=== PATIENT | male | born 1950 | race Caucasian/White ===

== ENCOUNTER 2019-12-26 14:08 | IRF | payer MEDICARE, SELFPAY ==
[2019-12-26 14:10] VITALS: BP 143/77; PULSE 76; RESP 20; TEMP 36.2; O2SAT 99; BMI 27.6
--- NOTE | 2019-12-26 15:25 | PC.NURSE ---
This patient, Murali Fajardo, was admitted to [facility] Room 223-01. Patient/family oriented to hospital policies and general routines including ID bracelet, bed and alarms, visiting hours, pain management, procedures, bathroom and other care routines, personal items, smoking policy, room service/diet, and visiting hours. Information on how to activate the Rapid Response Team has been discussed. Patient/Family are encouraged to report perceived risks to care and to ask questions if they do not understand what they are told or what they should do.
[2019-12-26 17:17] VITALS: BMI 27.9
[2019-12-26 17:40] VITALS: PULSE 76
[2019-12-26] MEDS: carvediloL 12.5 MG TABLET PO (17:40)
[2019-12-26 17:46] LABS: Glucose Point of Care 129 (65-105)
[2019-12-26 20:20] VITALS: BP 127/64; PULSE 66; RESP 16; TEMP 36.7; O2SAT 94
[2019-12-26] MEDS: ATORVASTATIN 40 MG TABLET PO (20:29)
[2019-12-26] MEDS: HEPARIN SODIUM 5,000 UNITS/ML VIAL 5000 UNITS SUB-Q (21:11)
[2019-12-26 21:23] LABS: Glucose Point of Care 99 (65-105)
[2019-12-27 05:23] LABS: Basophils Absolute Auto 0.1 K/mm3 (0.0-0.1); Basophils Percent Auto 0.6 % (0.2-1.2); Eosinophils Absolute Auto 0.1 K/mm3 (0-0.3); Eosinophils Percent Auto 1.1 % (0-4.4); Hematocrit 43.4 % (42.0-52.0); Immature Granulocyte Absolute 0.03 K/mm3 (0.00-0.031); Immature Granulocyte Percent A 0.3 % (0-0.5); Lymphocytes Absolute Auto 3.89 K/mm3 (0.9-3.2); Mean Corpuscular HGB Conc 34.6 g/dl (32-36); Mean Corpuscular Hemoglobin 30.9 pg (26-34); Mean Corpuscular Volume 89.3 fl (80-100); Mean Platelet Volume 9.7 fl (7.4-10.4); Monocytes Absolute Auto 0.8 K/mm3 (0.1-0.6); Monocytes Percent Auto 8.6 % (2.6-8.5); Neutrophils Absolute Auto 4.4 K/mm3 (1.3-6.7); Neutrophils Percent Auto 47.4 % (45.5-73.1); Platelet Count Result 336 k/mm3 (150-375); Red Blood Count 4.86 M/mm3 (4.6-6.20); Red Cell Distribution Width 12.9 % (11.5-14.5); White Blood Count 9.3 K/mm3 (4.5-10.0)
[2019-12-27 05:46] LABS: Hemoglobin A1C 5.5 % (<5.7)
[2019-12-27 05:47] LABS: Anion Gap 9 mmol/L (8-16); Blood Urea Nitrogen 42 mg/dL (9-20); Calcium 9.4 mg/dL (8.4-10.2); Carbon Dioxide 26 mmol/L (22-30); Chloride 108 mmol/L (98-107); Cholesterol 111 mg/dL (0-200); Estimated CRCL calculation 48 ml/min; Estimated Glomerular Filt Rate 50; Glucose 100 mg/dL (75-110); HDL Direct 28 mg/dL; Potassium 3.7 mmol/L (3.4-5.0); Sodium 143 mmol/L (137-145); Triglycerides 117 mg/dL (<150)
[2019-12-27 05:58] LABS: LDL Cholesterol Direct 57 mg/dL
[2019-12-27 06:00] VITALS: BP 122/57; PULSE 63; RESP 20; TEMP 36.8; O2SAT 96
[2019-12-27] MEDS: HEPARIN SODIUM 5,000 UNITS/ML VIAL 5000 UNITS SUB-Q ×3 (06:05→22:04)
[2019-12-27 06:12] LABS: Glucose Point of Care 96 (65-105)
[2019-12-27] MEDS: amLODIPine BESYLATE 5 MG TABLET 10 MG PO (08:48)
[2019-12-27] MEDS: ASPIRIN 81 MG CHEWABLE TABLET PO (08:48)
[2019-12-27 08:49] VITALS: PULSE 63
[2019-12-27] MEDS: CLOPIDOGREL BISULFATE 75 MG TABLET PO (08:49)
[2019-12-27] MEDS: carvediloL 12.5 MG TABLET PO ×2 (08:49→17:35)
[2019-12-27] MEDS: lisinopriL 20 MG TABLET 40 MG PO (08:49)
[2019-12-27] MEDS: NICOTINE (*PBKC) 14 MG PATCH 1 PATCH TRANSDERM (08:49)
[2019-12-27] MEDS: SENNOSIDES 8.6 MG TABLET PO ×2 (08:49→17:35)
[2019-12-27 12:08] LABS: Glucose Point of Care 108 (65-105)
--- NOTE | 2019-12-27 12:59 | WPDREHABHP ---
H&P: HPI History of Present Illness Date/Time: 12/27/19 12:59 Chief complaint: CVA Narrative: Murali Fajardo is a 69 year old maleHISTORY OF PRESENT ILLNESS: The patient's primary rehab impairment category is Stroke The etiologic diagnosis is right basal ganglia stroke I saw this patient [id number] on Abel 30 p.m. on 2119 The patient is a 69 years old right-handed male with no significant past medical history presented to [facility] on December 21, 2019 after waking up with left-sided facial droop, dysarthria, and left arm weakness. Initial NIH SS was 3 upon [facility] NIH SS was 5. TPA was not administered as patient was a wake-up stroke. Mechanical thrombectomy was not warranted with NIHSS of 5. CT of the head showed no acute intracranial hemorrhage, midline shift, or significant mass effect. MRI of the brain showed a small focus of restricted diffusion in the right periventricular white matter coronal radiata, extending along the dorsal aspect of the right basal ganglia, compatible with acute infarction there was no evidence of hemorrhagic transformation. MRA was negative for large vessel occlusion. Echo was negative for shunt. neurology was consulted and the patient was started on aspirin atorvastatin Plavix and blood pressure medications. Physical examination continues to reveal decreased gross motor control, impaired balance, dysarthria, and decreased safety awareness, and bilateral lower extremity weakness. The patient passed his swallowing study and is on a regular consistency diet with thin liquids. The patient will need monitoring and management of blood pressure at the patient was not on any medication prior to this admission. He is currently on Norvasc, lisinopril, and Coreg. The patient dischargeed to the rehab on subcutaneous heparin for DVT prophylaxis until consistently ambulating 150ft with therapy COVID: patient has not traveled outside the [place] or had contact with someone who is ill that has traveled outside the [place] in the past 21 days. The patient has not traveled to an area of the [place] that is experiencing known transmission of the Coronavirus and has not had close personal contact with anyone that has. The patient does not have a fever. The patient is not experiencing lower respiratory illness symptoms. Therapy was initiated at the acute care facility and the patient transferred to us from [facility] on December 26, 2019 FALLS OR SURGERIES: The patient has had no major surgeries in the 100 days prior to admission. They had no falls in the past year. They had no falls with injury in the past year. PAST MEDICAL HISTORY: no significant medical history PAST SURGICAL HISTORY: no significant surgical history SOCIAL HISTORY: the patient is a current everyday smoker, no alcohol or drug abuse. He lives with his in a 1 level home with 5 steps to enter. There is a stair lift due to a medical condition his suffered a couple of years ago. The patient was completely independent prior with no assistive device. He is a retired construction carpenter and just prior to this stroke had recent sided their home. He is very motivated to return to his prior level of independent functioning. His is the available to assist him following rehabilitation if necessary FAMILY HISTORY: father with stroke x2 PRIOR LEVEL OF FUNCTION: Eating was [INDEPENDENT] Oral Care was [INDEPENDENT] Toileting Hygiene was [INDEPENDENT] Shower/Bathing was [INDEPENDENT] Upper Body Dressing was [INDEPENDENT] Lower Body Dressing was [INDEPENDENT] Donning/[place] Footwear was [INDEPENDENT] Rolling Left and Right was [INDEPENDENT] Sit to Lying was [INDEPENDENT] Lying to Sitting was [INDEPENDENT] Sit to Stand was [INDEPENDENT] Bed to Chair Transfers was [INDEPENDENT] Toilet Transfers was [INDEPENDENT] Walking was [INDEPENDENT] [>500 feet] with [NO DEVICE] Wheelchair Mobility
[2019-12-27 14:00] VITALS: BP 122/64; PULSE 73; RESP 20; TEMP 36.4; O2SAT 97
[2019-12-27 17:35] VITALS: PULSE 73
[2019-12-27 17:35] LABS: Glucose Point of Care 99 (65-105)
[2019-12-27 20:24] VITALS: BP 125/61; PULSE 72; RESP 18; TEMP 35.9; O2SAT 94
[2019-12-27] MEDS: ATORVASTATIN 40 MG TABLET PO (22:02)
[2019-12-27 22:26] LABS: Glucose Point of Care 87 (65-105)
[2019-12-28] VITALS (7 sets, daily range): BP systolic 128–141; BP diastolic 60–66; PULSE 63–78; RESP 19–20; TEMP 36.2–36.6; O2SAT 95–99
[2019-12-28] MEDS: HEPARIN SODIUM 5,000 UNITS/ML VIAL 5000 UNITS SUB-Q ×3 (06:03→20:56)
[2019-12-28 06:46] LABS: Glucose Point of Care 95 (65-105)
[2019-12-28] MEDS: CLOPIDOGREL BISULFATE 75 MG TABLET PO (09:06)
[2019-12-28] MEDS: ASPIRIN 81 MG CHEWABLE TABLET PO (09:06)
[2019-12-28] MEDS: SENNOSIDES 8.6 MG TABLET PO ×2 (09:06→16:56)
[2019-12-28] MEDS: amLODIPine BESYLATE 5 MG TABLET 10 MG PO (09:06)
[2019-12-28] MEDS: carvediloL 12.5 MG TABLET PO ×2 (09:06→16:57)
[2019-12-28] MEDS: lisinopriL 20 MG TABLET 40 MG PO (09:06)
[2019-12-28] MEDS: NICOTINE (*PBKC) 14 MG PATCH 1 PATCH TRANSDERM (09:06)
[2019-12-28] MEDS: ATORVASTATIN 40 MG TABLET PO (20:55)
[2019-12-29] MEDS: HEPARIN SODIUM 5,000 UNITS/ML VIAL 5000 UNITS SUB-Q ×3 (05:10→20:32)
[2019-12-29 06:00] VITALS: BP 127/67; PULSE 68; RESP 19; TEMP 36.4; O2SAT 97
[2019-12-29 08:23] VITALS: PULSE 68
[2019-12-29] MEDS: lisinopriL 20 MG TABLET 40 MG PO (08:23)
[2019-12-29] MEDS: amLODIPine BESYLATE 5 MG TABLET 10 MG PO (08:23)
[2019-12-29] MEDS: CLOPIDOGREL BISULFATE 75 MG TABLET PO (08:23)
[2019-12-29] MEDS: NICOTINE (*PBKC) 14 MG PATCH 1 PATCH TRANSDERM (08:23)
[2019-12-29] MEDS: ASPIRIN 81 MG CHEWABLE TABLET PO (08:23)
[2019-12-29] MEDS: carvediloL 12.5 MG TABLET PO ×2 (08:23→17:04)
[2019-12-29] MEDS: SENNOSIDES 8.6 MG TABLET PO ×2 (08:23→17:04)
--- NOTE | 2019-12-29 08:45 | RPD ---
INDIVIDUALIZED PLAN OF CARE FOR Murali Fajardo Brief Synthesis of Pre-Admission Screen, Post-Admission Evaluation and Therapy Evaluations: The patient presents to rehab with a right basal ganglia stroke. Comorbidities include uncontrolled hypertension, hyperlipidemia, impaired balance, bilateral lower extremity weakness, dysarthria, left-sided weakness, left-sided facial droop, and tobacco use. The complexity of the patient's medical management, nursing, and therapy needs require an inpatient rehab hospital stay with a physician-led interdisciplinary team approach. The patient?s needs will be best met in an intensive program vs. at a lower level of care. The patient requires physician services for neurology services, medical oversight, and coordination of care. The patient needs physician monitoring and treatment of new uncontrolled hypertension, monitoring for adverse reactions to new medications, monitoring of infection, and pain control. The patient requires nursing services for frequent neuro checks, anticoagulation therapy, medication management and education, pressure relief and skin care management, monitoring of labs, and fall/safety precautions. Deficits include:ADLs, Balance, Endurance, Family Training/Education, Mobility, ROM, Safety, Speech, Strength, Transfers Pigs Feet Cleaner/Case Management for: Discharge Planning and Patient/Family Counseling Physical Therapy: 5 days per week for 75 minutes. Treatments may include: Therapeutic Exercise, Gait Training, Neuromuscular Re-education, Transfer Training, Community Reintegration, Bed Mobility, Patient/Family Education, Wheelchair Mobility Group Therapy/Concurrent Therapy Rationales: -Improve attention span during functional activities in a distracted environment. -Enhance problem solving and/or adequate judgment skills during functional activities in a distracted environment. -Promote increased safety awareness in a distracted environment to reduce fall risk with functional tasks, transfers, and ambulation to allow a more safe, self-sufficient return to the home environment. -Improve dynamic balance skills to promote safety and independence with functional activities in a distracted environment for maximum gain. Occupational Therapy: 5 days per week for 75 minutes. Treatments may include: Therapeutic Exercise, Therapeutic Activity, Cognitive Training, Self-Care Transfer Training, Community Reintegration, Home Management, Patient/Family Education, Wheelchair Mobility Training, Energy Conservation Training Group Therapy/Concurrent Therapy Rationales: -Allow therapist to observe and teach generalization and carry-over of skills learned in individual therapy. -Enhance problem solving and sequencing skills during therapeutic activities in a distracted environment. -Promote increased safety awareness in a realistic setting to reduce fall risk with functional tasks due to visual and verbal distractions. -Increase functional level with ADLs, ADL transfers and use of adaptive equipment through therapeutic activities with others while promoting safety to allow a more safe, self-sufficient return home. Speech Therapy: 5 days per week for 30 minutes. Treatments may include: Dysphasia Therapy, Speech/Language/Communication Therapy, Cognitive Training, Patient/Family Education Group Therapy/Concurrent Therapy - Rationale: -Allow therapist to observe and teach generalization and carry-over of skills learned in individual therapy. -Improve comprehension skills with complex or abstract ideas through discussion in a realistic setting. -Enhance problem solving skills with complex issues during activities in a distracted environment. -Promote increased memory skills and concentration in a distracted environment for a safe transition home. -Improve attention and focus with language/communication skills in a realistic and supportive therapeutic setting. -Allow for practice of expression of basic needs and ideas through functional
--- NOTE | 2019-12-29 10:10 | WPDNEURORHBP ---
Subjective Date/time seen: 12/29/19 10:10 69 years old has been admitted to the rehab floor with the diagnosis of right basal gangliar is stroke without evidence of any significant past histor his CBC revealed WBC of 9.3 hemoglobin 15.0 with platelet count 336 BUN 42 with GFR of 50 Review of Systems Review of Systems: All systems reviewed & are unremarkable except as noted in HPI and below Functional Status Ambulation Ability Ability to Ambulate 10 Feet: Moderate Assistance X 1 Ability to Ambulate 50 Feet With 2 Turns: Moderate Assistance X 1 Ambulation Assistive Devices: Walker, Wheeled Transfers Ability Ability to Transfer In/Out of Chair: Minimum Assistance X 1 Exam Narrative: Exam Narrative: examination revealed him to be awake alert cooperative in no obvious acute distress ear nose throat examination normal heart regular with no murmur lungs clear without rhonchi abdomen is soft nontender normal bowel sounds neurological examination unchanged Objective Data Vital Signs Vital Signs: Vital Signs - 24 hr 12/28/19 10:31 12/28/19 14:00 12/28/19 16:57 Temperature 36.3 C L Pulse Rate 73 64 66 Respiratory Rate 20 Blood Pressure 138/66 141/66 H Pulse Oximetry 98 97 12/28/19 20:00 12/28/19 22:00 12/29/19 06:00 Temperature 36.6 C 36.4 C L Pulse Rate 78 78 68 Respiratory Rate 19 19 19 Blood Pressure 129/60 127/67 Pulse Oximetry 95 95 97 12/29/19 08:23 Temperature Pulse Rate 68 Respiratory Rate Blood Pressure Pulse Oximetry Intake/Output Intake/Output: Intake & Output 12/26/19 12/27/19 12/28/19 12/29/19 23:59 23:59 23:59 23:59 Intake Total 240 720 720 360 Balance 240 720 720 360 Meds/Results Medications: Active Medications Generic Name Dose Route Start Last Admin Trade Name Freq PRN Reason Stop Dose Admin Amlodipine Besylate 10 mg 12/27/19 09:00 12/29/19 08:23 Amlodipine Besylate 5 Mg Tablet PO 10 mg DAILY MARBELLA Administration Aspirin 81 mg 12/27/19 09:00 12/29/19 08:23 Aspirin 81 Mg Chewable Tablet PO 81 mg DAILY MARBELLA Administration Atorvastatin Calcium 40 mg 12/26/19 21:00 12/28/19 20:55 Atorvastatin 40 Mg Tablet PO 40 mg HS MARBELLA Administration Carvedilol 12.5 mg 12/26/19 17:00 12/29/19 08:23 Carvedilol 12.5 Mg Tablet PO 12.5 mg BID MARBELLA Administration Clopidogrel Bisulfate 75 mg 12/27/19 09:00 12/29/19 08:23 Clopidogrel Bisulfate 75 Mg Tablet PO 75 mg DAILY MARBELLA Administration Heparin Sodium (Porcine) 5,000 units 12/26/19 22:00 12/29/19 05:10 Heparin Sodium 5,000 Units/Ml Vial SUB-Q 5,000 units Q8HR MARBELLA Administration Lisinopril 40 mg 12/27/19 09:00 12/29/19 08:23 Lisinopril 20 Mg Tablet PO 40 mg DAILY MARBELLA Administration Nicotine 1 patch 12/26/19 15:30 12/29/19 08:23 Nicotine (*Pbkc) 14 Mg Patch TRANSDERM 1 patch DAILY MARBELLA Administration Polyethylene Glycol 17 gm 12/26/19 15:21 Polyethylene Glycol 3350 17 Gm Powd.Pack PO DAILY PRN Constipation Senna 8.6 mg 12/26/19 17:00 12/29/19 08:23 Sennosides 8.6 Mg Tablet PO 8.6 mg BID MARBELLA Administration Simethicone 80 mg 12/26/19 15:21 Simethicone 80 Mg Tab.Chew PO HS PRN Heartburn Progress Note: A&P Assessment and Plan (1) Stroke: Code(s): I63.9 - Cerebral infarction, unspecified Status: Acute Additional Plan continue the treatment as such repeat the lab earlier and decide accordingly
[2019-12-29 12:25] LABS: Anion Gap 8 mmol/L (8-16); Blood Urea Nitrogen 34 mg/dL (9-20); Calcium 9.3 mg/dL (8.4-10.2); Carbon Dioxide 27 mmol/L (22-30); Chloride 108 mmol/L (98-107); Estimated CRCL calculation 60 ml/min; Estimated Glomerular Filt Rate > 60; Glucose 110 mg/dL (75-110); Potassium 4.4 mmol/L (3.4-5.0); Sodium 143 mmol/L (137-145)
[2019-12-29 13:01] VITALS: BMI 27.9
[2019-12-29 14:00] VITALS: BP 134/60; PULSE 77; RESP 20; TEMP 36.6; O2SAT 96
--- NOTE | 2019-12-29 15:00 | PCPTNOTE ---
Murali Fajardo was evaluated for a tom cane on 12/29/2019 by this physical therapist. The tom cane will resolve patient's mobility limitations and will be used for ADL's within the home. The patient can safely use the tom cane. ?The tom cane will resolve the patient?s mobility deficits, including impaired balance and coordination, decreased endurance, and LE strength deficits.
[2019-12-29 17:04] VITALS: PULSE 77
[2019-12-29] MEDS: ATORVASTATIN 40 MG TABLET PO (20:32)
[2019-12-29 20:40] VITALS: BP 147/62; PULSE 73; RESP 14; TEMP 36.5; O2SAT 99
[2019-12-30] MEDS: HEPARIN SODIUM 5,000 UNITS/ML VIAL 5000 UNITS SUB-Q ×3 (05:50→21:55)
[2019-12-30 05:51] VITALS: BP 154/64; PULSE 65; RESP 14; TEMP 36.2; O2SAT 98
[2019-12-30] MEDS: NICOTINE (*PBKC) 14 MG PATCH 1 PATCH TRANSDERM (10:32)
[2019-12-30 10:33] VITALS: PULSE 65
[2019-12-30] MEDS: carvediloL 12.5 MG TABLET PO ×2 (10:33→16:59)
[2019-12-30] MEDS: lisinopriL 20 MG TABLET 40 MG PO (10:33)
[2019-12-30] MEDS: ASPIRIN 81 MG CHEWABLE TABLET PO (10:33)
[2019-12-30] MEDS: SENNOSIDES 8.6 MG TABLET PO ×2 (10:33→16:59)
[2019-12-30] MEDS: amLODIPine BESYLATE 5 MG TABLET 10 MG PO (10:33)
[2019-12-30] MEDS: CLOPIDOGREL BISULFATE 75 MG TABLET PO (10:34)
--- NOTE | 2019-12-30 11:16 | WPDNEURORHBP ---
Subjective Date/time seen: 12/30/19 11:16 69 years old has been admitted to the rehab floor of the [facility] with a right basal ganglia stroke with no evidence of an active comorbid conditions on today's visit he has no specific complaints and doing fairly well Functional Status Ambulation Ability Ability to Ambulate 10 Feet: Contact Guard Ability to Ambulate 50 Feet With 2 Turns: Contact Guard Ability to Ambulate 150 Feet: Minimum Assistance X 1 Ambulation Assistive Devices: Cane, Thomas Transfers Ability Ability to Transfer In/Out of Chair: Minimum Assistance X 1 Exam Narrative: Exam Narrative: on examination he is awake alert cooperative speech nor dysphasic not dysarthric heart regular lungs clear abdomen soft neurological examination is unchanged and his vital signs remained stable Objective Data Vital Signs Vital Signs: Vital Signs - 24 hr 12/29/19 14:00 12/29/19 17:04 12/29/19 20:40 Temperature 36.6 C 36.5 C Pulse Rate 77 77 73 Respiratory Rate 20 14 Blood Pressure 134/60 147/62 H Pulse Oximetry 96 99 12/30/19 05:51 12/30/19 10:33 Temperature 36.2 C L Pulse Rate 65 65 Respiratory Rate 14 Blood Pressure 154/64 H Pulse Oximetry 98 Intake/Output Intake/Output: Intake & Output 12/27/19 12/28/19 12/29/19 12/30/19 23:59 23:59 23:59 23:59 Intake Total 286 129 2215 480 Balance 264 842 3551 480 Meds/Results Medications: Active Medications Generic Name Dose Route Start Last Admin Trade Name Freq PRN Reason Stop Dose Admin Amlodipine Besylate 10 mg 12/27/19 09:00 12/30/19 10:33 Amlodipine Besylate 5 Mg Tablet PO 10 mg DAILY MARBELLA Administration Aspirin 81 mg 12/27/19 09:00 12/30/19 10:33 Aspirin 81 Mg Chewable Tablet PO 81 mg DAILY MARBELLA Administration Atorvastatin Calcium 40 mg 12/26/19 21:00 12/29/19 20:32 Atorvastatin 40 Mg Tablet PO 40 mg HS MARBELLA Administration Carvedilol 12.5 mg 12/26/19 17:00 12/30/19 10:33 Carvedilol 12.5 Mg Tablet PO 12.5 mg BID MARBELLA Administration Clopidogrel Bisulfate 75 mg 12/27/19 09:00 12/30/19 10:34 Clopidogrel Bisulfate 75 Mg Tablet PO 75 mg DAILY MARBELLA Administration Heparin Sodium (Porcine) 5,000 units 12/26/19 22:00 12/30/19 05:50 Heparin Sodium 5,000 Units/Ml Vial SUB-Q 5,000 units Q8HR MARBELLA Administration Lisinopril 40 mg 12/27/19 09:00 12/30/19 10:33 Lisinopril 20 Mg Tablet PO 40 mg DAILY MARBELLA Administration Nicotine 1 patch 12/26/19 15:30 12/30/19 10:32 Nicotine (*Pbkc) 14 Mg Patch TRANSDERM 1 patch DAILY MARBELLA Administration Polyethylene Glycol 17 gm 12/26/19 15:21 Polyethylene Glycol 3350 17 Gm Powd.Pack PO DAILY PRN Constipation Senna 8.6 mg 12/26/19 17:00 12/30/19 10:33 Sennosides 8.6 Mg Tablet PO 8.6 mg BID MARBELLA Administration Simethicone 80 mg 12/26/19 15:21 Simethicone 80 Mg Tab.Chew PO HS PRN Heartburn Labs Labs: Laboratory Results - last 24 hr 12/29/19 12:06 Sodium 143 Potassium 4.4 Chloride 108 H Carbon Dioxide 27 Anion Gap 8 BUN 34 H Creatinine 1.10 Estim Creat Clear Calc 60 Estimated GFR > 60 Glucose 110 Calcium 9.3 Progress Note: A&P Assessment and Plan (1) Stroke: Code(s): I63.9 - Cerebral infarction, unspecified Status: Acute Additional Plan at present is stable continue the treatment as such
[2019-12-30 14:00] VITALS: BP 152/65; PULSE 70; RESP 16; TEMP 36.3; O2SAT 98
[2019-12-30 16:59] VITALS: PULSE 70
[2019-12-30] MEDS: ATORVASTATIN 40 MG TABLET PO (21:55)
[2019-12-30 21:58] VITALS: BP 133/55; PULSE 71; RESP 20; TEMP 36.8; O2SAT 98
[2019-12-31] MEDS: HEPARIN SODIUM 5,000 UNITS/ML VIAL 5000 UNITS SUB-Q ×3 (05:52→21:07)
[2019-12-31 06:00] VITALS: BP 127/67; PULSE 78; RESP 20; TEMP 36.6; O2SAT 97
[2019-12-31] MEDS: NICOTINE (*PBKC) 14 MG PATCH 1 PATCH TRANSDERM (08:26)
[2019-12-31] MEDS: lisinopriL 20 MG TABLET 40 MG PO (08:26)
[2019-12-31 08:27] VITALS: PULSE 76
[2019-12-31] MEDS: ASPIRIN 81 MG CHEWABLE TABLET PO (08:27)
[2019-12-31] MEDS: SENNOSIDES 8.6 MG TABLET PO ×2 (08:27→16:43)
[2019-12-31] MEDS: CLOPIDOGREL BISULFATE 75 MG TABLET PO (08:27)
[2019-12-31] MEDS: amLODIPine BESYLATE 5 MG TABLET 10 MG PO (08:27)
[2019-12-31] MEDS: carvediloL 12.5 MG TABLET PO ×2 (08:27→16:43)
--- NOTE | 2019-12-31 12:07 | WPDNEURORHBP ---
Subjective Date/time seen: 12/31/19 12:07 69 years old has been admitted to the rehab floor with the diagnosis of right basal ganglia stroke but no evidence of active comorbid conditions on today's visit he has no specific complaints his routine lab reveals the BUN of 34 Review of Systems Review of Systems: All systems reviewed & are unremarkable except as noted in HPI and below Functional Status Ambulation Ability Ability to Ambulate 10 Feet: Contact Guard Ability to Ambulate 50 Feet With 2 Turns: Contact Guard Ability to Ambulate 150 Feet: Contact Guard Ambulation Assistive Devices: Cane, Thomas Transfers Ability Ability to Transfer In/Out of Chair: Contact Guard Exam Narrative: Exam Narrative: on examination he is awake alert his speech normal with no dysphagia or dysarthria heart regular with no murmur lungs clear with no rhonchi or crepitations abdomen soft with no organomegaly normal bowel sounds and nontender neurological examination unchanged Objective Data Vital Signs Vital Signs: Vital Signs - 24 hr 12/30/19 14:00 12/30/19 16:59 12/30/19 21:58 Temperature 36.3 C L 36.8 C Pulse Rate 70 70 71 Respiratory Rate 16 20 Blood Pressure 152/65 H 133/55 L Pulse Oximetry 98 98 12/31/19 06:00 12/31/19 08:27 Temperature 36.6 C Pulse Rate 78 76 Respiratory Rate 20 Blood Pressure 127/67 Pulse Oximetry 97 Intake/Output Intake/Output: Intake & Output 12/28/19 12/29/19 12/30/19 12/31/19 23:59 23:59 23:59 23:59 Intake Total 720 1080 1200 360 Balance 720 1080 1200 360 Meds/Results Medications: Active Medications Generic Name Dose Route Start Last Admin Trade Name Freq PRN Reason Stop Dose Admin Amlodipine Besylate 10 mg 12/27/19 09:00 12/31/19 08:27 Amlodipine Besylate 5 Mg Tablet PO 10 mg DAILY MARBELLA Administration Aspirin 81 mg 12/27/19 09:00 12/31/19 08:27 Aspirin 81 Mg Chewable Tablet PO 81 mg DAILY MARBELLA Administration Atorvastatin Calcium 40 mg 12/26/19 21:00 12/30/19 21:55 Atorvastatin 40 Mg Tablet PO 40 mg HS MARBELLA Administration Carvedilol 12.5 mg 12/26/19 17:00 12/31/19 08:27 Carvedilol 12.5 Mg Tablet PO 12.5 mg BID MARBELLA Administration Clopidogrel Bisulfate 75 mg 12/27/19 09:00 12/31/19 08:27 Clopidogrel Bisulfate 75 Mg Tablet PO 75 mg DAILY MARBELLA Administration Heparin Sodium (Porcine) 5,000 units 12/26/19 22:00 12/31/19 05:52 Heparin Sodium 5,000 Units/Ml Vial SUB-Q 5,000 units Q8HR MARBELLA Administration Lisinopril 40 mg 12/27/19 09:00 12/31/19 08:26 Lisinopril 20 Mg Tablet PO 40 mg DAILY MARBELLA Administration Nicotine 1 patch 12/26/19 15:30 12/31/19 08:26 Nicotine (*Pbkc) 14 Mg Patch TRANSDERM 1 patch DAILY MARBELLA Administration Polyethylene Glycol 17 gm 12/26/19 15:21 Polyethylene Glycol 3350 17 Gm Powd.Pack PO DAILY PRN Constipation Senna 8.6 mg 12/26/19 17:00 12/31/19 08:27 Sennosides 8.6 Mg Tablet PO 8.6 mg BID MARBELLA Administration Simethicone 80 mg 12/26/19 15:21 Simethicone 80 Mg Tab.Chew PO HS PRN Heartburn Progress Note: A&P Assessment and Plan (1) Stroke: Code(s): I63.9 - Cerebral infarction, unspecified Status: Acute Additional Plan stable continue the treatment as such will repeat the BMP because the BUN 34 and might need more hydration
[2019-12-31 14:00] VITALS: BP 141/63; PULSE 81; RESP 20; TEMP 36.8; O2SAT 96
[2019-12-31 16:43] VITALS: PULSE 80
[2019-12-31] MEDS: ATORVASTATIN 40 MG TABLET PO (20:27)
[2019-12-31 22:00] VITALS: BP 150/65; PULSE 80; RESP 18; TEMP 36.3; O2SAT 98
[2020-01-01] MEDS: HEPARIN SODIUM 5,000 UNITS/ML VIAL 5000 UNITS SUB-Q ×3 (05:37→21:00)
[2020-01-01 06:00] VITALS: BP 148/69; PULSE 74; RESP 18; TEMP 36.6; O2SAT 96
[2020-01-01 08:28] VITALS: PULSE 74
[2020-01-01] MEDS: lisinopriL 20 MG TABLET 40 MG PO (08:28)
[2020-01-01] MEDS: amLODIPine BESYLATE 5 MG TABLET 10 MG PO (08:28)
[2020-01-01] MEDS: CLOPIDOGREL BISULFATE 75 MG TABLET PO (08:28)
[2020-01-01] MEDS: NICOTINE (*PBKC) 14 MG PATCH 1 PATCH TRANSDERM (08:28)
[2020-01-01] MEDS: carvediloL 12.5 MG TABLET PO ×2 (08:28→17:48)
[2020-01-01] MEDS: SENNOSIDES 8.6 MG TABLET PO ×2 (08:28→17:48)
[2020-01-01] MEDS: ASPIRIN 81 MG CHEWABLE TABLET PO (08:28)
[2020-01-01 14:00] VITALS: BP 136/61; PULSE 79; RESP 20; TEMP 36.5; O2SAT 97
[2020-01-01 17:48] VITALS: PULSE 79
[2020-01-01 20:00] VITALS: PULSE 72; RESP 20; O2SAT 97
[2020-01-01] MEDS: ATORVASTATIN 40 MG TABLET PO (20:59)
[2020-01-01 22:00] VITALS: BP 134/68; PULSE 72; RESP 20; TEMP 36.7; O2SAT 97
[2020-01-02] MEDS: HEPARIN SODIUM 5,000 UNITS/ML VIAL 5000 UNITS SUB-Q ×3 (05:44→20:34)
[2020-01-02 06:00] VITALS: BP 130/78; PULSE 78; RESP 20; TEMP 36.9; O2SAT 97
[2020-01-02 08:55] VITALS: PULSE 78
[2020-01-02] MEDS: carvediloL 12.5 MG TABLET PO ×2 (08:55→18:07)
[2020-01-02] MEDS: ASPIRIN 81 MG CHEWABLE TABLET PO (08:55)
[2020-01-02] MEDS: lisinopriL 20 MG TABLET 40 MG PO (08:55)
[2020-01-02] MEDS: amLODIPine BESYLATE 5 MG TABLET 10 MG PO (08:55)
[2020-01-02] MEDS: SENNOSIDES 8.6 MG TABLET PO ×2 (08:56→18:07)
[2020-01-02] MEDS: CLOPIDOGREL BISULFATE 75 MG TABLET PO (08:56)
[2020-01-02] MEDS: NICOTINE (*PBKC) 14 MG PATCH 1 PATCH TRANSDERM (08:56)
--- NOTE | 2020-01-02 10:17 | WPDNEURORHBP ---
Subjective Date/time seen: 01/02/20 10:17 69 years old has been admitted to the rehab floor of [facility] with a diagnosis of right basal ganglia stroke without any specific active comorbid conditions. Continues to receive the same medications in addition actively involved the physical therapy and walking down the nichols Review of Systems Review of Systems: All systems reviewed & are unremarkable except as noted in HPI and below Functional Status Ambulation Ability Ability to Ambulate 10 Feet: Contact Guard Ability to Ambulate 50 Feet With 2 Turns: Contact Guard Ability to Ambulate 150 Feet: Contact Guard Ambulation Assistive Devices: Cane, Thomas Transfers Ability Ability to Transfer In/Out of Chair: Contact Guard Exam Narrative: Exam Narrative: on examination he is awake alert cooperative in no obvious acute distress. His speech not dysphasic no dysarthric not dysphonic neck is supple. Heart regular with no murmur. Lungs clear to auscultation with no rhonchi or crepitations. Abdomen is soft with no organomegaly and normal bowel sounds nontender. Neurological examination revealed him to be awake alert oriented x3 with normal and full speech without evidence of dysphagia dysarthria or dysphonia. Pupils round regular , visual tapia are full, extraocular movements are full with no nystagmus, facial sensation intact, face symmetrical, tongue midline, motor examination reveals him to have left hemiparesis with hyperreflexia and upgoing plantar response on the left. There is no evidence of any cerebellar deficit. Objective Data Vital Signs Vital Signs: Vital Signs - 24 hr 01/01/20 14:00 01/01/20 17:48 01/01/20 20:00 Temperature 36.5 C Pulse Rate 79 79 72 Respiratory Rate 20 20 Blood Pressure 136/61 Pulse Oximetry 97 97 01/01/20 22:00 01/02/20 06:00 01/02/20 08:55 Temperature 36.7 C 36.9 C Pulse Rate 72 78 78 Respiratory Rate 20 20 Blood Pressure 134/68 130/78 Pulse Oximetry 97 97 Intake/Output Intake/Output: Intake & Output 12/30/19 12/31/19 01/01/20 01/02/20 23:59 23:59 23:59 23:59 Intake Total 1200 840 720 240 Balance 1200 840 720 240 Meds/Results Medications: Active Medications Generic Name Dose Route Start Last Admin Trade Name Freq PRN Reason Stop Dose Admin Amlodipine Besylate 10 mg 12/27/19 09:00 01/02/20 08:55 Amlodipine Besylate 5 Mg Tablet PO 10 mg DAILY MARBELLA Administration Aspirin 81 mg 12/27/19 09:00 01/02/20 08:55 Aspirin 81 Mg Chewable Tablet PO 81 mg DAILY MARBELLA Administration Atorvastatin Calcium 40 mg 12/26/19 21:00 01/01/20 20:59 Atorvastatin 40 Mg Tablet PO 40 mg HS MARBELLA Administration Carvedilol 12.5 mg 12/26/19 17:00 01/02/20 08:55 Carvedilol 12.5 Mg Tablet PO 12.5 mg BID MARBELLA Administration Clopidogrel Bisulfate 75 mg 12/27/19 09:00 01/02/20 08:56 Clopidogrel Bisulfate 75 Mg Tablet PO 75 mg DAILY MARBELLA Administration Heparin Sodium (Porcine) 5,000 units 12/26/19 22:00 01/02/20 05:44 Heparin Sodium 5,000 Units/Ml Vial SUB-Q 5,000 units Q8HR MARBELLA Administration Lisinopril 40 mg 12/27/19 09:00 01/02/20 08:55 Lisinopril 20 Mg Tablet PO 40 mg DAILY MARBELLA Administration Nicotine 1 patch 12/26/19 15:30 01/02/20 08:56 Nicotine (*Pbkc) 14 Mg Patch TRANSDERM 1 patch DAILY MARBELLA Administration Polyethylene Glycol 17 gm 12/26/19 15:21 Polyethylene Glycol 3350 17 Gm Powd.Pack PO DAILY PRN Constipation Senna 8.6 mg 12/26/19 17:00 01/02/20 08:56 Sennosides 8.6 Mg Tablet PO 8.6 mg BID MARBELLA Administration Simethicone 80 mg 12/26/19 15:21 Simethicone 80 Mg Tab.Chew PO HS PRN Heartburn Progress Note: A&P Assessment and Plan (1) Stroke: Code(s): I63.9 - Cerebral infarction, unspecified Status: Acute Additional Plan Making improvement, looks very happy, treatment will be continued as such.
[2020-01-02 14:00] VITALS: BP 140/67; PULSE 75; RESP 18; TEMP 37.1; O2SAT 95
[2020-01-02 18:07] VITALS: PULSE 75
[2020-01-02 20:00] VITALS: PULSE 77; RESP 18; O2SAT 97
[2020-01-02] MEDS: ATORVASTATIN 40 MG TABLET PO (20:34)
[2020-01-02 22:00] VITALS: BP 133/64; PULSE 77; RESP 18; TEMP 36.4; O2SAT 97
[2020-01-03 04:47] LABS: Basophils Absolute Auto 0.1 K/mm3 (0.0-0.1); Basophils Percent Auto 0.9 % (0.2-1.2); Eosinophils Absolute Auto 0.1 K/mm3 (0-0.3); Eosinophils Percent Auto 1.4 % (0-4.4); Hematocrit 37.5 % (42.0-52.0); Immature Granulocyte Absolute 0.03 K/mm3 (0.00-0.031); Immature Granulocyte Percent A 0.3 % (0-0.5); Lymphocytes Absolute Auto 2.57 K/mm3 (0.9-3.2); Mean Corpuscular HGB Conc 34.7 g/dl (32-36); Mean Corpuscular Hemoglobin 30.6 pg (26-34); Mean Corpuscular Volume 88.2 fl (80-100); Mean Platelet Volume 9.6 fl (7.4-10.4); Monocytes Absolute Auto 1.3 K/mm3 (0.1-0.6); Monocytes Percent Auto 13.7 % (2.6-8.5); Neutrophils Absolute Auto 5.1 K/mm3 (1.3-6.7); Neutrophils Percent Auto 55.7 % (45.5-73.1); Platelet Count Result 311 k/mm3 (150-375); Red Blood Count 4.25 M/mm3 (4.6-6.20); Red Cell Distribution Width 12.7 % (11.5-14.5); White Blood Count 9.2 K/mm3 (4.5-10.0)
[2020-01-03] MEDS: HEPARIN SODIUM 5,000 UNITS/ML VIAL 5000 UNITS SUB-Q ×3 (05:16→21:14)
[2020-01-03 05:47] LABS: Anion Gap 8 mmol/L (8-16); Blood Urea Nitrogen 17 mg/dL (9-20); Carbon Dioxide 28 mmol/L (22-30); Chloride 106 mmol/L (98-107); Estimated CRCL calculation 73 ml/min; Estimated Glomerular Filt Rate > 60; Glucose 104 mg/dL (75-110); Potassium 3.5 mmol/L (3.4-5.0); Sodium 142 mmol/L (137-145)
[2020-01-03 05:52] VITALS: BP 139/71; PULSE 78; RESP 18; TEMP 36.4; O2SAT 95
[2020-01-03] MEDS: NICOTINE (*PBKC) 14 MG PATCH 1 PATCH TRANSDERM (08:43)
[2020-01-03] MEDS: CLOPIDOGREL BISULFATE 75 MG TABLET PO (08:43)
[2020-01-03] MEDS: lisinopriL 20 MG TABLET 40 MG PO (08:43)
[2020-01-03] MEDS: ASPIRIN 81 MG CHEWABLE TABLET PO (08:43)
[2020-01-03] MEDS: amLODIPine BESYLATE 5 MG TABLET 10 MG PO (08:43)
[2020-01-03] MEDS: SENNOSIDES 8.6 MG TABLET PO ×2 (08:45→17:11)
[2020-01-03 08:46] VITALS: PULSE 78
[2020-01-03] MEDS: carvediloL 12.5 MG TABLET PO ×2 (08:46→17:11)
[2020-01-03 14:00] VITALS: BP 135/56; PULSE 79; RESP 18; TEMP 36.6; O2SAT 98
[2020-01-03 17:11] VITALS: PULSE 79
[2020-01-03 20:00] VITALS: PULSE 79; RESP 20; O2SAT 96
[2020-01-03] MEDS: ATORVASTATIN 40 MG TABLET PO (21:15)
[2020-01-03 22:00] VITALS: BP 130/61; PULSE 79; RESP 20; TEMP 36.9; O2SAT 96
[2020-01-04] MEDS: HEPARIN SODIUM 5,000 UNITS/ML VIAL 5000 UNITS SUB-Q ×3 (05:47→20:13)
[2020-01-04 05:54] VITALS: BP 126/65; PULSE 78; RESP 18; TEMP 36.6; O2SAT 94
[2020-01-04 08:51] VITALS: PULSE 78
[2020-01-04] MEDS: CLOPIDOGREL BISULFATE 75 MG TABLET PO (08:51)
[2020-01-04] MEDS: carvediloL 12.5 MG TABLET PO ×2 (08:51→17:08)
[2020-01-04] MEDS: ASPIRIN 81 MG CHEWABLE TABLET PO (08:51)
[2020-01-04] MEDS: lisinopriL 20 MG TABLET 40 MG PO (08:51)
[2020-01-04] MEDS: amLODIPine BESYLATE 5 MG TABLET 10 MG PO (08:51)
[2020-01-04] MEDS: NICOTINE (*PBKC) 14 MG PATCH 1 PATCH TRANSDERM (08:52)
[2020-01-04] MEDS: SENNOSIDES 8.6 MG TABLET PO ×2 (08:54→17:08)
[2020-01-04 14:00] VITALS: BP 123/52; PULSE 74; RESP 16; TEMP 36.6; O2SAT 96
[2020-01-04 17:08] VITALS: PULSE 74
[2020-01-04] MEDS: ATORVASTATIN 40 MG TABLET PO (20:09)
[2020-01-05 06:00] VITALS: BP 153/67; PULSE 78; RESP 20; TEMP 36.5; O2SAT 97
[2020-01-05] MEDS: HEPARIN SODIUM 5,000 UNITS/ML VIAL 5000 UNITS SUB-Q (06:00)
[2020-01-05 08:31] VITALS: PULSE 78
[2020-01-05] MEDS: lisinopriL 20 MG TABLET 40 MG PO (08:31)
[2020-01-05] MEDS: NICOTINE (*PBKC) 14 MG PATCH 1 PATCH TRANSDERM (08:31)
[2020-01-05] MEDS: CLOPIDOGREL BISULFATE 75 MG TABLET PO (08:31)
[2020-01-05] MEDS: carvediloL 12.5 MG TABLET PO ×2 (08:31→16:58)
[2020-01-05] MEDS: ASPIRIN 81 MG CHEWABLE TABLET PO (08:31)
[2020-01-05] MEDS: amLODIPine BESYLATE 5 MG TABLET 10 MG PO (08:31)
[2020-01-05] MEDS: SENNOSIDES 8.6 MG TABLET PO (09:25)
--- NOTE | 2020-01-05 09:36 | WPDNEURORHBP ---
Subjective Date/time seen: 01/05/20 09:36 69 years old has been admitted to the rehab floor with a diagnosis of right basal ganglia stroke with no specific active comorbid condition otherwise he is continuing to be involved in the physical therapy and occupational therapy has no specific complaints last lab was on 01/02 which revealed him to have hemoglobin of 13.0 with platelet count of 311 and normal basic metabolic panel Functional Status Ambulation Ability Ability to Ambulate 10 Feet: Standby Assistance Ability to Ambulate 50 Feet With 2 Turns: Contact Guard Ability to Ambulate 150 Feet: Contact Guard Ambulation Assistive Devices: Cane, Thomas Transfers Ability Ability to Transfer In/Out of Chair: Standby Assistance Exam Narrative: Exam Narrative: on examination he is awake alert cooperative his speech nor dysphasic not dysarthric heart regular with no murmur lungs clear to auscultation no rhonchi or crepitation neurologically has no focal neurological deficit except the left hemiparesis with hyperreflexia and upgoing plantar response on the left side that is unchanged from the previous examination Objective Data Vital Signs Vital Signs: Vital Signs - 24 hr 01/04/20 14:00 01/04/20 17:08 01/05/20 06:00 Temperature 36.6 C 36.5 C Pulse Rate 74 74 78 Respiratory Rate 16 20 Blood Pressure 123/52 L 153/67 H Pulse Oximetry 96 97 01/05/20 08:31 Temperature Pulse Rate 78 Respiratory Rate Blood Pressure Pulse Oximetry Intake/Output Intake/Output: Intake & Output 01/02/20 01/03/20 01/04/20 01/05/20 23:59 23:59 23:59 23:59 Intake Total 960 840 960 240 Balance 960 840 960 240 Meds/Results Medications: Active Medications Generic Name Dose Route Start Last Admin Trade Name Freq PRN Reason Stop Dose Admin Amlodipine Besylate 10 mg 12/27/19 09:00 01/05/20 08:31 Amlodipine Besylate 5 Mg Tablet PO 10 mg DAILY MARBELLA Administration Aspirin 81 mg 12/27/19 09:00 01/05/20 08:31 Aspirin 81 Mg Chewable Tablet PO 81 mg DAILY MARBELLA Administration Atorvastatin Calcium 40 mg 12/26/19 21:00 01/04/20 20:09 Atorvastatin 40 Mg Tablet PO 40 mg HS MARBELLA Administration Carvedilol 12.5 mg 12/26/19 17:00 01/05/20 08:31 Carvedilol 12.5 Mg Tablet PO 12.5 mg BID MARBELLA Administration Clopidogrel Bisulfate 75 mg 12/27/19 09:00 01/05/20 08:31 Clopidogrel Bisulfate 75 Mg Tablet PO 75 mg DAILY MARBELLA Administration Heparin Sodium (Porcine) 5,000 units 12/26/19 22:00 01/05/20 06:00 Heparin Sodium 5,000 Units/Ml Vial SUB-Q 5,000 units Q8HR MARBELLA Administration Lisinopril 40 mg 12/27/19 09:00 01/05/20 08:31 Lisinopril 20 Mg Tablet PO 40 mg DAILY MARBELLA Administration Nicotine 1 patch 12/26/19 15:30 01/05/20 08:31 Nicotine (*Ederkc) 14 Mg Patch TRANSDERM 1 patch DAILY MARBELLA Administration Polyethylene Glycol 17 gm 12/26/19 15:21 Polyethylene Glycol 3350 17 Gm Powd.Pack PO DAILY PRN Constipation Senna 8.6 mg 12/26/19 17:00 01/05/20 09:25 Sennosides 8.6 Mg Tablet PO 8.6 mg BID MARBELLA Administration Simethicone 80 mg 12/26/19 15:21 Simethicone 80 Mg Tab.Chew PO HS PRN Heartburn Progress Note: A&P Assessment and Plan (1) Stroke: Code(s): I63.9 - Cerebral infarction, unspecified Status: Acute Additional Plan will continue the therapy as such
--- NOTE | 2020-01-05 12:54 | PCDIET ---
Nutrition Follow-Up Complete: Nutrition Diagnosis: Decreased sodium/fat needs related to cardiovascular disease as evidenced by CVA. Nutrition Goal: Patient to consume 75% of meals or greater. Goal met. Patient consuming 75-100% of most meals on regular diet. 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 Last recorded weight is 93.4 kg. Recommend obtaining new weight. Bowel Motility: Last BM on 01/03/20, per nursing flowsheet. Labs Reviewed: Hgb (13.0), Hct (37.5) Meds Noted: Norvasc, Lipitor, Lisinopril, Senna Additional Notes: No documented skin breakdown. Will continue to monitor with same goal. Nutrition Monitoring and Evaluation: Follow up every 7 days.
[2020-01-05 14:00] VITALS: BP 124/76; PULSE 74; RESP 16; TEMP 36.6; O2SAT 95
[2020-01-05 16:58] VITALS: PULSE 74
[2020-01-05] MEDS: ATORVASTATIN 40 MG TABLET PO (20:01)
[2020-01-05 22:00] VITALS: BP 127/49; PULSE 80; RESP 18; TEMP 36.3; O2SAT 99
[2020-01-06 06:00] VITALS: BP 133/68; PULSE 82; RESP 16; TEMP 36.1; O2SAT 95
--- NOTE | 2020-01-06 09:15 | WPDNEURORHBP ---
Subjective Date/time seen: 01/06/20 09:15 69 years old admitted to the rehab floor with right basal ganglia stroke with no specific underlying comorbid condition case was discussed in the meeting obviously has left-sided neuro deficit which is definitely improving his will be taken off the heparin will continue the nicotine patch and when he gets discharged will get the outpatient physical therapy and occupational therapy he will require the him I can and TT bench and medication given to his local pharmacy Review of Systems Review of Systems: All systems reviewed & are unremarkable except as noted in HPI and below Functional Status Ambulation Ability Ability to Ambulate 10 Feet: Standby Assistance Ability to Ambulate 50 Feet With 2 Turns: Contact Guard Ability to Ambulate 150 Feet: Standby Assistance Ambulation Assistive Devices: Cane, Thomas Transfers Ability Ability to Transfer In/Out of Chair: Independent Exam Narrative: Exam Narrative: on examination he is awake alert cooperative in no obvious acute distress speech nor dysphasic no dysarthric not dysphonic pupils round regular feels the vision full extraocular muscle full face symmetrical tongue midline motor examination revealed him to have left hemiparesis with hyperreflexia and upgoing left plantar response heart regular lungs clear abdomen is soft Objective Data Vital Signs Vital Signs: Vital Signs - 24 hr 01/05/20 14:00 01/05/20 16:58 01/05/20 22:00 Temperature 36.6 C 36.3 C L Pulse Rate 74 74 80 Respiratory Rate 16 18 Blood Pressure 124/76 127/49 L Pulse Oximetry 95 99 01/06/20 06:00 Temperature 36.1 C L Pulse Rate 82 Respiratory Rate 16 Blood Pressure 133/68 Pulse Oximetry 95 Intake/Output Intake/Output: Intake & Output 01/03/20 01/04/20 01/05/20 01/06/20 23:59 23:59 23:59 23:59 Intake Total 840 960 720 480 Balance 840 960 720 480 Meds/Results Medications: Active Medications Generic Name Dose Route Start Last Admin Trade Name Freq PRN Reason Stop Dose Admin Amlodipine Besylate 10 mg 12/27/19 09:00 01/05/20 08:31 Amlodipine Besylate 5 Mg Tablet PO 10 mg DAILY MARBELLA Administration Aspirin 81 mg 12/27/19 09:00 01/05/20 08:31 Aspirin 81 Mg Chewable Tablet PO 81 mg DAILY MARBELLA Administration Atorvastatin Calcium 40 mg 12/26/19 21:00 01/05/20 20:01 Atorvastatin 40 Mg Tablet PO 40 mg HS MARBELLA Administration Carvedilol 12.5 mg 12/26/19 17:00 01/05/20 16:58 Carvedilol 12.5 Mg Tablet PO 12.5 mg BID MARBELLA Administration Clopidogrel Bisulfate 75 mg 12/27/19 09:00 01/05/20 08:31 Clopidogrel Bisulfate 75 Mg Tablet PO 75 mg DAILY MARBELLA Administration Lisinopril 40 mg 12/27/19 09:00 01/05/20 08:31 Lisinopril 20 Mg Tablet PO 40 mg DAILY MARBELLA Administration Nicotine 1 patch 12/26/19 15:30 01/05/20 08:31 Nicotine (*Maribeth) 14 Mg Patch TRANSDERM 1 patch DAILY MARBELLA Administration Polyethylene Glycol 17 gm 12/26/19 15:21 Polyethylene Glycol 3350 17 Gm Powd.Pack PO DAILY PRN Constipation Senna 8.6 mg 12/26/19 17:00 01/05/20 16:58 Sennosides 8.6 Mg Tablet PO Not Given BID MARBELLA Simethicone 80 mg 12/26/19 15:21 Simethicone 80 Mg Tab.Chew PO HS PRN Heartburn Progress Note: A&P Assessment and Plan (1) Stroke: Code(s): I63.9 - Cerebral infarction, unspecified Status: Acute Additional Plan is stable continue the therapy as such take him off the heparin start him on the nicotine patch and also plan for the discharge on January 13, 2020 with all the instruction as discussed in the meeting
[2020-01-06 10:17] VITALS: PULSE 82
[2020-01-06] MEDS: amLODIPine BESYLATE 5 MG TABLET 10 MG PO (10:17)
[2020-01-06] MEDS: lisinopriL 20 MG TABLET 40 MG PO (10:17)
[2020-01-06] MEDS: ASPIRIN 81 MG CHEWABLE TABLET PO (10:17)
[2020-01-06] MEDS: CLOPIDOGREL BISULFATE 75 MG TABLET PO (10:17)
[2020-01-06] MEDS: carvediloL 12.5 MG TABLET PO ×2 (10:17→16:19)
[2020-01-06] MEDS: NICOTINE (*PBKC) 14 MG PATCH 1 PATCH TRANSDERM (10:18)
[2020-01-06 14:00] VITALS: BP 138/55; PULSE 79; RESP 18; TEMP 36.8; O2SAT 95
[2020-01-06] MEDS: ATORVASTATIN 40 MG TABLET PO (20:09)
[2020-01-06 22:00] VITALS: BP 131/62; PULSE 75; RESP 18; TEMP 36.3; O2SAT 95
[2020-01-07] VITALS (7 sets, daily range): BP systolic 126–149; BP diastolic 54–65; PULSE 79–81; RESP 16–20; TEMP 36.5–36.8; O2SAT 97–99
[2020-01-07] MEDS: amLODIPine BESYLATE 5 MG TABLET 10 MG PO (09:17)
[2020-01-07] MEDS: CLOPIDOGREL BISULFATE 75 MG TABLET PO (09:17)
[2020-01-07] MEDS: lisinopriL 20 MG TABLET 40 MG PO (09:17)
[2020-01-07] MEDS: carvediloL 12.5 MG TABLET PO ×2 (09:17→17:11)
[2020-01-07] MEDS: ASPIRIN 81 MG CHEWABLE TABLET PO (09:17)
[2020-01-07] MEDS: NICOTINE (*PBKC) 14 MG PATCH 1 PATCH TRANSDERM (09:18)
[2020-01-07] MEDS: SENNOSIDES 8.6 MG TABLET PO ×2 (09:18→17:11)
[2020-01-07] MEDS: ATORVASTATIN 40 MG TABLET PO (20:47)
[2020-01-08 05:39] VITALS: BP 136/64; PULSE 78; RESP 18; TEMP 36.3; O2SAT 97
[2020-01-08] MEDS: lisinopriL 20 MG TABLET 40 MG PO (08:58)
[2020-01-08] MEDS: ASPIRIN 81 MG CHEWABLE TABLET PO (08:58)
[2020-01-08] MEDS: amLODIPine BESYLATE 5 MG TABLET 10 MG PO (09:20)
[2020-01-08] MEDS: carvediloL 12.5 MG TABLET PO ×2 (09:20→16:31)
[2020-01-08] MEDS: NICOTINE (*PBKC) 14 MG PATCH 1 PATCH TRANSDERM (09:20)
[2020-01-08] MEDS: CLOPIDOGREL BISULFATE 75 MG TABLET PO (09:20)
[2020-01-08 14:00] VITALS: BP 132/54; PULSE 81; RESP 18; TEMP 36.1; O2SAT 97
--- NOTE | 2020-01-08 15:09 | WPDNEURORHBP ---
Subjective Date/time seen: 01/08/20 15:09 69 years old with right basal ganglia stroke and left-sided neurological deficit has been involved in the physical therapy and occupational therapy his stay has been extended because of the significant deficit for which he requires more therapy Review of Systems Review of Systems: All systems reviewed & are unremarkable except as noted in HPI and below Functional Status Ambulation Ability Ability to Ambulate 10 Feet: Standby Assistance Ability to Ambulate 50 Feet With 2 Turns: Standby Assistance Ability to Ambulate 150 Feet: Contact Guard Ambulation Assistive Devices: Cane, Thomas Transfers Ability Ability to Transfer In/Out of Chair: Independent Exam Narrative: Exam Narrative: on examination today he is awake alert cooperative his speech nor dysphasic not dysarthric but somewhat slow though is still not dysphonic is oriented in right and left able to carry out the conversation the cranial examination otherwise is normal motor examination reveals him to have left hemiparesis with hyperreflexia upgoing plantar response is able to stand but had difficulties in maintaining the balance heart is regular lungs clear with no rhonchi or crepitations abdomen is soft nontender normal bowel sounds Objective Data Vital Signs Vital Signs: Vital Signs - 24 hr 01/07/20 17:11 01/07/20 20:00 01/07/20 22:00 Temperature 36.5 C Pulse Rate 81 79 79 Respiratory Rate 18 18 Blood Pressure 149/63 H Pulse Oximetry 99 99 01/08/20 05:39 01/08/20 14:00 Temperature 36.3 C L 36.1 C L Pulse Rate 78 81 Respiratory Rate 18 18 Blood Pressure 136/64 132/54 L Pulse Oximetry 97 97 Intake/Output Intake/Output: Intake & Output 01/05/20 01/06/20 01/07/20 01/08/20 23:59 23:59 23:59 23:59 Intake Total 720 960 720 480 Balance 720 960 720 480 Meds/Results Medications: Active Medications Generic Name Dose Route Start Last Admin Trade Name Freq PRN Reason Stop Dose Admin Amlodipine Besylate 10 mg 12/27/19 09:00 01/08/20 09:20 Amlodipine Besylate 5 Mg Tablet PO 10 mg DAILY MARBELLA Administration Aspirin 81 mg 12/27/19 09:00 01/08/20 08:58 Aspirin 81 Mg Chewable Tablet PO 81 mg DAILY MARBLELA Administration Atorvastatin Calcium 40 mg 12/26/19 21:00 01/07/20 20:47 Atorvastatin 40 Mg Tablet PO 40 mg HS MARBELLA Administration Carvedilol 12.5 mg 12/26/19 17:00 01/08/20 09:20 Carvedilol 12.5 Mg Tablet PO 12.5 mg BID MARBELLA Administration Clopidogrel Bisulfate 75 mg 12/27/19 09:00 01/08/20 09:20 Clopidogrel Bisulfate 75 Mg Tablet PO 75 mg DAILY MARBELLA Administration Lisinopril 40 mg 12/27/19 09:00 01/08/20 08:58 Lisinopril 20 Mg Tablet PO 40 mg DAILY MARBELLA Administration Nicotine 1 patch 12/26/19 15:30 01/08/20 09:20 Nicotine (*Pbkc) 14 Mg Patch TRANSDERM 1 patch DAILY MARBELLA Administration Polyethylene Glycol 17 gm 12/26/19 15:21 Polyethylene Glycol 3350 17 Gm Powd.Pack PO DAILY PRN Constipation Senna 8.6 mg 12/26/19 17:00 01/08/20 10:54 Sennosides 8.6 Mg Tablet PO Not Given BID MARBELLA Simethicone 80 mg 12/26/19 15:21 Simethicone 80 Mg Tab.Chew PO HS PRN Heartburn Progress Note: A&P Assessment and Plan (1) Stroke: Code(s): I63.9 - Cerebral infarction, unspecified Status: Acute Additional Plan is stable medically need more therapy and is pleased that he will be able to extend few more days
[2020-01-08 20:00] VITALS: PULSE 76; RESP 18; O2SAT 98
[2020-01-08] MEDS: ATORVASTATIN 40 MG TABLET PO (20:13)
[2020-01-08 21:24] VITALS: BP 129/55; PULSE 76; RESP 18; TEMP 36.6; O2SAT 98
[2020-01-09 05:48] VITALS: BP 135/69; PULSE 80; RESP 16; TEMP 36.6; O2SAT 95
[2020-01-09 10:07] VITALS: PULSE 80
[2020-01-09] MEDS: NICOTINE (*PBKC) 14 MG PATCH 1 PATCH TRANSDERM (10:07)
[2020-01-09] MEDS: carvediloL 12.5 MG TABLET PO ×2 (10:07→16:58)
[2020-01-09] MEDS: amLODIPine BESYLATE 5 MG TABLET 10 MG PO (10:08)
[2020-01-09] MEDS: lisinopriL 20 MG TABLET 40 MG PO (10:08)
[2020-01-09] MEDS: ASPIRIN 81 MG CHEWABLE TABLET PO (10:08)
[2020-01-09] MEDS: CLOPIDOGREL BISULFATE 75 MG TABLET PO (10:08)
[2020-01-09] MEDS: SENNOSIDES 8.6 MG TABLET PO ×2 (10:10→16:59)
[2020-01-09 14:00] VITALS: BP 141/65; PULSE 75; RESP 20; TEMP 36.7; O2SAT 96
[2020-01-09 16:58] VITALS: PULSE 76
[2020-01-09] MEDS: ATORVASTATIN 40 MG TABLET PO (20:17)
[2020-01-10 05:19] LABS: Basophils Absolute Auto 0.1 K/mm3 (0.0-0.1); Basophils Percent Auto 0.9 % (0.2-1.2); Eosinophils Absolute Auto 0.2 K/mm3 (0-0.3); Eosinophils Percent Auto 2.6 % (0-4.4); Hematocrit 36.3 % (42.0-52.0); Hemoglobin 12.5 g/dL (14.0-18.0); Immature Granulocyte Absolute 0.02 K/mm3 (0.00-0.031); Immature Granulocyte Percent A 0.3 % (0-0.5); Lymphocytes Absolute Auto 1.72 K/mm3 (0.9-3.2); Lymphocytes Percent Auto 26.5 % (18.3-44.2); Mean Corpuscular HGB Conc 34.4 g/dl (32-36); Mean Corpuscular Hemoglobin 31.7 pg (26-34); Mean Corpuscular Volume 92.1 fl (80-100); Mean Platelet Volume 9.3 fl (7.4-10.4); Monocytes Absolute Auto 0.8 K/mm3 (0.1-0.6); Neutrophils Absolute Auto 3.7 K/mm3 (1.3-6.7); Neutrophils Percent Auto 57.7 % (45.5-73.1); Platelet Count Result 395 k/mm3 (150-375); Red Blood Count 3.94 M/mm3 (4.6-6.20); Red Cell Distribution Width 12.4 % (11.5-14.5); White Blood Count 6.5 K/mm3 (4.5-10.0)
[2020-01-10 05:41] LABS: Anion Gap 3 mmol/L (8-16); Blood Urea Nitrogen 15 mg/dL (9-20); Calcium 8.7 mg/dL (8.4-10.2); Carbon Dioxide 31 mmol/L (22-30); Chloride 103 mmol/L (98-107); Estimated CRCL calculation 66 ml/min; Estimated Glomerular Filt Rate > 60; Glucose 98 mg/dL (75-110); Potassium 3.5 mmol/L (3.4-5.0); Sodium 137 mmol/L (137-145)
[2020-01-10 06:00] VITALS: BP 145/66; PULSE 73; RESP 20; TEMP 36; O2SAT 93
[2020-01-10 08:35] VITALS: PULSE 73
[2020-01-10] MEDS: carvediloL 12.5 MG TABLET PO ×2 (08:35→17:53)
[2020-01-10] MEDS: NICOTINE (*PBKC) 14 MG PATCH 1 PATCH TRANSDERM (08:35)
[2020-01-10] MEDS: amLODIPine BESYLATE 5 MG TABLET 10 MG PO (08:36)
[2020-01-10] MEDS: ASPIRIN 81 MG CHEWABLE TABLET PO (08:36)
[2020-01-10] MEDS: CLOPIDOGREL BISULFATE 75 MG TABLET PO (08:36)
[2020-01-10] MEDS: lisinopriL 20 MG TABLET 40 MG PO (08:36)
[2020-01-10] MEDS: SENNOSIDES 8.6 MG TABLET PO ×2 (08:38→17:53)
--- NOTE | 2020-01-10 12:07 | WPDNEUROPN ---
Progress Note: A&P Additional Plan remains involved in physical therapy and occupational therapy and interested in getting better as much as possible has no specific complaints today treatment will be continued as such Exam Narrative: Exam Narrative: he is awake alert cooperative ear nose throat examination normal ,mucous membranes are moist ,no rhinorrhea,neck is supple ,heart regular ,lungs clear without rhonchi or crepitations, abdomen is soft neurological examination unchanged Objective Data Vital Signs Vital Signs: Vital Signs - 24 hr 01/09/20 14:00 01/09/20 16:58 01/10/20 06:00 Temperature 36.7 C 36.0 C L Pulse Rate 75 76 73 Respiratory Rate 20 20 Blood Pressure 141/65 H 145/66 H Pulse Oximetry 96 93 01/10/20 08:35 Temperature Pulse Rate 73 Respiratory Rate Blood Pressure Pulse Oximetry Intake/Output Intake/Output: Intake & Output 01/07/20 01/08/20 01/09/20 01/10/20 23:59 23:59 23:59 23:59 Intake Total 720 720 720 240 Balance 720 720 720 240 Meds/Results Medications: Active Medications Generic Name Dose Route Start Last Admin Trade Name Freq PRN Reason Stop Dose Admin Amlodipine Besylate 10 mg 12/27/19 09:00 01/10/20 08:36 Amlodipine Besylate 5 Mg Tablet PO 10 mg DAILY MARBELLA Administration Aspirin 81 mg 12/27/19 09:00 01/10/20 08:36 Aspirin 81 Mg Chewable Tablet PO 81 mg DAILY MARBELLA Administration Atorvastatin Calcium 40 mg 12/26/19 21:00 01/09/20 20:17 Atorvastatin 40 Mg Tablet PO 40 mg HS MARBELLA Administration Carvedilol 12.5 mg 12/26/19 17:00 01/10/20 08:35 Carvedilol 12.5 Mg Tablet PO 12.5 mg BID MARBELLA Administration Clopidogrel Bisulfate 75 mg 12/27/19 09:00 01/10/20 08:36 Clopidogrel Bisulfate 75 Mg Tablet PO 75 mg DAILY MARBELLA Administration Lisinopril 40 mg 12/27/19 09:00 01/10/20 08:36 Lisinopril 20 Mg Tablet PO 40 mg DAILY MARBELLA Administration Nicotine 1 patch 12/26/19 15:30 01/10/20 08:35 Nicotine (*Pbkc) 14 Mg Patch TRANSDERM 1 patch DAILY MARBELLA Administration Polyethylene Glycol 17 gm 12/26/19 15:21 Polyethylene Glycol 3350 17 Gm Powd.Pack PO DAILY PRN Constipation Senna 8.6 mg 12/26/19 17:00 01/10/20 08:38 Sennosides 8.6 Mg Tablet PO 8.6 mg BID MARBELLA Administration Simethicone 80 mg 12/26/19 15:21 Simethicone 80 Mg Tab.Chew PO HS PRN Heartburn Labs Labs: Laboratory Results - last 24 hr 01/10/20 01/10/20 04:30 04:30 WBC 6.5 RBC 3.94 L Hgb 12.5 L Hct 36.3 L MCV 92.1 MCH 31.7 MCHC 34.4 RDW 12.4 Plt Count 395 H MPV 9.3 Immature Gran % (Auto) 0.3 Neut % (Auto) 57.7 Lymph % (Auto) 26.5 [place] % (Auto) 12.0 H Eos % (Auto) 2.6 Baso % (Auto) 0.9 Lymph # (Auto) 1.72 [place] # (Auto) 0.8 H Eos # (Auto) 0.2 Baso # (Auto) 0.1 Abs Immat Gran (auto) 0.02 Absolute Neuts (auto) 3.7 Absolute Nucleated RBC 0.0 Nucleated RBC % 0.0 Sodium 137 Potassium 3.5 Chloride 103 Carbon Dioxide 31 H Anion Gap 3 L BUN 15 Creatinine 1.00 Estim Creat Clear Calc 66 Estimated GFR > 60 Glucose 98 Calcium 8.7
[2020-01-10 14:00] VITALS: BP 124/52; PULSE 73; RESP 20; TEMP 36.3; O2SAT 94
[2020-01-10 17:53] VITALS: PULSE 73
[2020-01-10 19:37] VITALS: BP 137/57; PULSE 78; RESP 20; TEMP 36.4; O2SAT 97
[2020-01-10] MEDS: ATORVASTATIN 40 MG TABLET PO (20:19)
[2020-01-11 05:56] VITALS: BP 132/66; PULSE 77; RESP 18; TEMP 36.4; O2SAT 99
[2020-01-11 09:48] VITALS: PULSE 77
[2020-01-11] MEDS: carvediloL 12.5 MG TABLET PO ×2 (09:48→17:16)
[2020-01-11] MEDS: NICOTINE (*PBKC) 14 MG PATCH 1 PATCH TRANSDERM (09:48)
[2020-01-11] MEDS: amLODIPine BESYLATE 5 MG TABLET 10 MG PO (09:49)
[2020-01-11] MEDS: CLOPIDOGREL BISULFATE 75 MG TABLET PO (09:49)
[2020-01-11] MEDS: SENNOSIDES 8.6 MG TABLET PO ×2 (09:49→17:17)
[2020-01-11] MEDS: lisinopriL 20 MG TABLET 40 MG PO (09:49)
[2020-01-11] MEDS: ASPIRIN 81 MG CHEWABLE TABLET PO (09:49)
[2020-01-11 14:00] VITALS: BP 126/59; PULSE 77; RESP 18; TEMP 36.5; O2SAT 96
[2020-01-11 17:16] VITALS: PULSE 77
[2020-01-11 20:00] VITALS: PULSE 71; RESP 18; O2SAT 96
[2020-01-11] MEDS: ATORVASTATIN 40 MG TABLET PO (20:32)
[2020-01-11 22:00] VITALS: BP 127/59; PULSE 71; RESP 18; TEMP 37.1; O2SAT 96
[2020-01-12 05:31] VITALS: BP 133/71; PULSE 73; RESP 18; TEMP 36.2; O2SAT 96
[2020-01-12 08:00] VITALS: PULSE 73; RESP 18; O2SAT 96
[2020-01-12 08:31] VITALS: PULSE 73
[2020-01-12] MEDS: ASPIRIN 81 MG CHEWABLE TABLET PO (08:31)
[2020-01-12] MEDS: amLODIPine BESYLATE 5 MG TABLET 10 MG PO (08:31)
[2020-01-12] MEDS: CLOPIDOGREL BISULFATE 75 MG TABLET PO (08:31)
[2020-01-12] MEDS: lisinopriL 20 MG TABLET 40 MG PO (08:31)
[2020-01-12] MEDS: carvediloL 12.5 MG TABLET PO ×2 (08:31→16:55)
[2020-01-12] MEDS: NICOTINE (*PBKC) 14 MG PATCH 1 PATCH TRANSDERM (08:32)
[2020-01-12] MEDS: SENNOSIDES 8.6 MG TABLET PO ×3 (09:00→16:55)
--- NOTE | 2020-01-12 10:35 | WPDNEUROPN ---
Progress Note: A&P Assessment and Plan (1) Stroke: Code(s): I63.9 - Cerebral infarction, unspecified Status: Acute Additional Plan he will be discharged tomorrow and all the arrangements have been made for his outpatient physical therapy as well Review of Systems Review of Systems: All systems reviewed & are unremarkable except as noted in HPI and below Exam Narrative: Exam Narrative: on examination he is awake alert cooperative in no obvious acute distress his speech nor dysphasic no dysarthric not dysphonic heart regular with no murmur lungs clear to auscultation with no rhonchi or crepitations abdomen is soft with normal bowel sounds nontender neurological he is awake alert oriented x3 his speech nor dysphasic no dysarthric not dysphonic pupils round regular visual tapia are full face is symmetrical midline motor examination revealed left hemiparesis and gait with the hemiparetic gait Objective Data Vital Signs Vital Signs: Vital Signs - 24 hr 01/11/20 14:00 01/11/20 17:16 01/11/20 20:00 Temperature 36.5 C Pulse Rate 77 77 71 Respiratory Rate 18 18 Blood Pressure 126/59 L Pulse Oximetry 96 96 01/11/20 22:00 01/12/20 05:31 01/12/20 08:00 Temperature 37.1 C 36.2 C L Pulse Rate 71 73 73 Respiratory Rate 18 18 18 Blood Pressure 127/59 L 133/71 Pulse Oximetry 96 96 96 01/12/20 08:31 Temperature Pulse Rate 73 Respiratory Rate Blood Pressure Pulse Oximetry Intake/Output Intake/Output: Intake & Output 01/09/20 01/10/20 01/11/20 01/12/20 23:59 23:59 23:59 23:59 Intake Total 720 720 720 240 Balance 720 720 720 240 Meds/Results Medications: Active Medications Generic Name Dose Route Start Last Admin Trade Name Freq PRN Reason Stop Dose Admin Amlodipine Besylate 10 mg 12/27/19 09:00 01/12/20 08:31 Amlodipine Besylate 5 Mg Tablet PO 10 mg DAILY MARBELLA Administration Aspirin 81 mg 12/27/19 09:00 01/12/20 08:31 Aspirin 81 Mg Chewable Tablet PO 81 mg DAILY MARBELLA Administration Atorvastatin Calcium 40 mg 12/26/19 21:00 01/11/20 20:32 Atorvastatin 40 Mg Tablet PO 40 mg HS MARBELLA Administration Carvedilol 12.5 mg 12/26/19 17:00 01/12/20 08:31 Carvedilol 12.5 Mg Tablet PO 12.5 mg BID MARBELLA Administration Clopidogrel Bisulfate 75 mg 12/27/19 09:00 01/12/20 08:31 Clopidogrel Bisulfate 75 Mg Tablet PO 75 mg DAILY MARBELLA Administration Lisinopril 40 mg 12/27/19 09:00 01/12/20 08:31 Lisinopril 20 Mg Tablet PO 40 mg DAILY MARBELLA Administration Nicotine 1 patch 12/26/19 15:30 01/12/20 08:32 Nicotine (*Ederkc) 14 Mg Patch TRANSDERM 1 patch DAILY MARBELLA Administration Polyethylene Glycol 17 gm 12/26/19 15:21 Polyethylene Glycol 3350 17 Gm Powd.Pack PO DAILY PRN Constipation Senna 8.6 mg 12/26/19 17:00 01/11/20 17:17 Sennosides 8.6 Mg Tablet PO 8.6 mg BID MARBELLA Administration Simethicone 80 mg 12/26/19 15:21 Simethicone 80 Mg Tab.Chew PO HS PRN Heartburn
--- NOTE | 2020-01-12 11:04 | PCDIET ---
Nutrition Follow-Up Complete: Nutrition Diagnosis: Decreased sodium/fat needs related to cardiovascular disease as evidenced by CVA. Nutrition Goal: Patient to consume 75% of meals or greater. Goal met. Patient consuming 100% of meals on regular diet. Recommend heart healthy diet fpc. Last recorded weight is 93.4 kg. Recommend obtaining new weight. Bowel Motility: +BM today, per nursing flowsheet. Labs Reviewed: Hgb (12.5), Hct (36.3) Meds Noted: Norvasc, Lipitor, Plavix, Lisinopril, Senna Additional Notes: No documented skin breakdown. Will continue to monitor with same goal. Nutrition Monitoring and Evaluation: Follow up every 7 days.
[2020-01-12 14:00] VITALS: BP 143/65; PULSE 72; RESP 20; TEMP 36.7; O2SAT 97
[2020-01-12 16:55] VITALS: PULSE 72
[2020-01-12] MEDS: ATORVASTATIN 40 MG TABLET PO (20:56)
[2020-01-12 22:00] VITALS: BP 147/67; PULSE 70; RESP 20; TEMP 36.6; O2SAT 97
[2020-01-13 06:00] VITALS: BP 150/69; PULSE 76; RESP 20; TEMP 36.3; O2SAT 97
[2020-01-13] MEDS: amLODIPine BESYLATE 5 MG TABLET 10 MG PO (09:55)
[2020-01-13 09:56] VITALS: PULSE 76
[2020-01-13] MEDS: CLOPIDOGREL BISULFATE 75 MG TABLET PO (09:56)
[2020-01-13] MEDS: lisinopriL 20 MG TABLET 40 MG PO (09:56)
[2020-01-13] MEDS: ASPIRIN 81 MG CHEWABLE TABLET PO (09:56)
[2020-01-13] MEDS: carvediloL 12.5 MG TABLET PO (09:56)
[2020-01-13] MEDS: NICOTINE (*PBKC) 14 MG PATCH 1 PATCH TRANSDERM (09:59)
--- NOTE | 2020-01-15 12:30 | PM.DS ---
DS: Admitting Diagnosis Admitting Diagnosis Admitting Diagnosis: CVA ADMISSION FUNCTION: 69 years old right-handed male admitted to the rehab floor with the diagnosis of right basal ganglia stroke and clinical left-sided facial droop dysarthria and left upper extremity weakness, negative CT scan of the head, abnormal MRI of the brain, negative MRI a large vessel occlusion, negative echocardiogram and clinical difficulties with the balance speech safety awareness and lower extremity weakness and also with no significant medical past history. During the entire hospitalization he was actively involved in physical therapy and occupational therapy family meeting was carried out with his spouse proper arrangements were made and extension of the rehab stay was also obtained because of his gradual but significant improvement. At the time of admission his evaluation revealed that he required Eating [Set Up Only] Oral Care supervision Toileting Hygiene [ substantial Shower/Bathing partial assistance Upper Body Dressing [ partial assistance Lower Body Dressing substantial Donning/[place] Footwear [ substantial Rolling Left and Right supervision Sit to Lying partial assistance Lying to Sitting partial assistance Sit to Stand supervision Bed to Chair Transfers partial assistance Toilet Transfers substantial Car Transfers partial assistance Walking 10' partial assistance Walking 50' with Two Turns unable Walking 150' unable Curb or Step substantial 4 Steps substantial 12 Steps unable Picking Up Object substantial [Wheelchair Mobility 50'] partial assistance wheelchair 150ft substantial GOALS: Eating set up Oral Care set up Toileting Hygiene set up Shower/Bathing set up Upper Body Dressing set up Lower Body Dressing supervision Donning/[place] Footwear supervision Rolling Left and Right [INDEPENDENT] Sit to Lying [INDEPENDENT] Lying to Sitting [INDEPENDENT] Sit to Stand [INDEPENDENT] Bed to Chair Transfers [INDEPENDENT] Toilet Transfers [INDEPENDENT] Car Transfers [INDEPENDENT] Walking 10' [INDEPENDENT] Walking 50' with Two Turns [INDEPENDENT] Walking 150' [INDEPENDENT] Curb or Step supervision 4 Steps supervision 12 Steps unable Picking Up Object superb [Wheelchair Mobility 50'] [INDEPENDENT] [Wheelchair Mobility 150'] independent DISCHARGE PERFORMANCE: Eating set up Oral Care [INDEPENDENT] Toileting Hygiene supervision Shower/Bathing [INDEPENDENT] Upper Body Dressing [INDEPENDENT] Lower Body Dressing [INDEPENDENT] Donning/[place] Footwear [INDEPENDENT] Rolling Left and Right [INDEPENDENT] Sit to Lying [INDEPENDENT] Lying to Sitting [INDEPENDENT] Sit to Stand [INDEPENDENT] Bed to Chair Transfers [INDEPENDENT] Toilet Transfers [INDEPENDENT] Car Transfers [INDEPENDENT] Walking 10' [INDEPENDENT] Walking 50' with Two Turns [INDEPENDENT] Walking 150' [INDEPENDENT] Curb or Step supervision 4 Steps [INDEPENDENT] 12 Steps [ supervision Picking Up Object [INDEPENDENT] [Wheelchair Mobility 50'] [INDEPENDENT] [Wheelchair Mobility 150'] [INDEPENDENT] during the entire hospitalization patient had no fall made significant improvement and was discharged to home with Home Health instructions DS: Summary Time Spent with Patient Time attestation: Total time spent providing and/or coordinating discharge services: Discharge Plan Discharge Attending physician on discharge: Charan Michelle Discharging Clinician: Charan Michelle Patient Disposition: Home Health Service Activity: no driving and as tolerated Diet: regular Patient Instructions: Antibiotic Form, How to Stop Smoking (DC), Heart Healthy Diet (ED), Heart Healthy Diet (DC), Ischemic Stroke (GEN), Blood Thinners (GEN) Stand Alone Forms: General Discharge Information Follow-up/Referrals: Fredi Mccormick MD [Other] (This is for stroke follow-up and they will notify you of appointment date.) Primary Care Physician [Other] (Call your PCP for
== END 2020-01-13 13:49 | disposition home health service (06) | DRG 57 ==
PROVIDERS: Admitting Provider Psychiatry & Neurology Neurology; PCP Family Medicine; Visit Provider Psychiatry & Neurology Neurology
DX: I69.354 Hemiplegia and hemiparesis following cerebral infarction affecting left non-dominant side (principal); I69.322 Dysarthria following cerebral infarction; I69.392 Facial weakness following cerebral infarction; E78.5 Hyperlipidemia, unspecified; I10 Essential (primary) hypertension; F17.210 Nicotine dependence, cigarettes, uncomplicated
CPT/HCPCS: 36415; 80048; 80061; 83036; 85025; 92507; 92522; 92523; 92526; 97014; 97110; 97112; 97116; 97163; 97166; 97530; 97535; 97542; A9270; G0283; J1644